=== PATIENT | male | born 1975 | race American Indian/Alaskan Native ===

== ENCOUNTER 2020-07-17 16:55 | Emergency (ER) | payer OTHER, BC ==
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
[2020-07-17 19:12] VITALS: BP 126/72
== END 2020-07-17 19:10 | disposition home or self-care (01) ==
LOC: ED 16:55
DX: S46.812A Strain of other muscles, fascia and tendons at shoulder and upper arm level, left arm, initial encounter (principal); M25.551 Pain in right hip; M25.532 Pain in left wrist; Z79.899 Other long term (current) drug therapy; V49.49XA Driver injured in collision with other motor vehicles in traffic accident, initial encounter; Y93.89 Activity, other specified; Y92.488 Other paved roadways as the place of occurrence of the external cause; Y99.8 Other external cause status
CPT/HCPCS: 99283

== ENCOUNTER 2021-01-12 18:59 | Emergency (ER) | payer BC, OTHER ==
[2021-01-12 23:39] VITALS: BP 138/79
[2021-01-13] MEDS ORDERED: IBUPROFEN 800 MG TAB PO ONE (06:10)
[2021-01-13] MEDS ORDERED: HYDROcodone/ACETAMINOPHEN 5-325 MG TAB PO ONE (06:10)
--- NOTE | 2021-01-13 06:31 | XRay Report ---
LUMBAR SPINE 3 VIEWS INDICATION / CLINICAL INFORMATION: fall. Pain COMPARISON: None available. FINDINGS: VERTEBRAE: No fracture. No significant malalignment. DISC SPACES:Mild discogenic degenerative disease T12-L3 FACET JOINTS:No significant abnormality. ADDITIONAL FINDINGS: None. IMPRESSION: 1. No significant abnormality. Signer Name: Corona Ellison MD Signed: 01/13/2021 6:27 AM Workstation Name: [id number]
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
== END 2021-01-13 07:07 | disposition home or self-care (01) ==
LOC: ED 18:59
DX: S40.029A Contusion of unspecified upper arm, initial encounter (principal); M54.9 Dorsalgia, unspecified; W18.30XA Fall on same level, unspecified, initial encounter; Y93.89 Activity, other specified; Y92.89 Other specified places as the place of occurrence of the external cause; Y99.8 Other external cause status
CPT/HCPCS: 72100; 99283